=== PATIENT | female | born 1980 | race Caucasian/White ===

== ENCOUNTER → 2024-10-30 | Outpatient (CLI) | payer BC, SELFPAY ==
--- NOTE | 2024-10-30 15:28 | EKG_ITS ---
[facility] Test Date: 2024-10-30 Pat Name: MOISE ASHFORD Department: Room: - Gender: Female Manager Credit: SETH : 1980 Requested By: Abdoulaye Nguyen Order Number: [id number] Reading MD: Abdoulaye Nguyen Measurements Intervals Roland Rate: 97 P: 59 ME: 146 QRS: 21 QRSD: 94 T: 51 QT: 352 QTc: 449 Interpretive Statements SINUS RHYTHM No previous ECG available for comparison /[id number]/[email or web address]/[id number].pdf
[2024-10-30 16:36] LABS: Basophils % (Auto) 1 % (0-2.5); Eosinophils # (Auto) 0.1 Thou/mm3 (0.0-0.5); Eosinophils % (Auto) 2 % (0-10); Hematocrit 38.1 % (36.0-46.0); Hemoglobin 12.9 g/dL (12.0-16.0); Immature Granulocytes % (Auto) 0 % (0-0); Immature Granulocytes Auto 0.01 Thou/mm3 (0.00-0.00); Lymphocytes # (Auto) 2.1 Thou/mm3 (1.0-4.8); Lymphocytes % (Auto) 46 % (10-50); Mean Corpuscular HGB Conc 33.9 g/dl (31.0-37.0); Mean Corpuscular Hemoglobin 30.5 pg (25.0-35.0); Mean Corpuscular Volume 90 fL (80-100); Monocytes # (Auto) 0.3 Thou/mm3 (0.0-0.8); Monocytes % (Auto) 7 % (0-12); Neutrophils # (Auto) 2.1 Thou/mm3 (1.8-7.7); Neutrophils % (Auto) 45 % (37-80); Nucleated Red Blood Cell % 0 /100 WBC (0); Platelet Count 351 Thou/mm3 (140-440); RDW Standard Deviation 42.8 fL (36.4-46.3); Red Blood Count 4.23 Miln/mm3 (4.00-5.20); White Blood Count 4.6 Thou/mm3 (3.6-11.0)
[2024-10-30 16:47] LABS: Glucose Estimated Average 120 mg/dL (80-131); Hemoglobin A1C 5.8 % Hgb (4.8-6.0)
[2024-10-30 17:05] LABS: Alanine Aminotransferase 21 U/L (10-49); Albumin, Serum 4.6 gm/dL (3.5-5.0); Albumin/Globulin Ratio 2.1 (1.2-2.2); Alkaline Phosphatase 113 U/L (46-116); Anion Gap 9 (7-16); Aspartate Amino Transferase 17 U/L (0-34); BUN/Creatinine Ratio 11 Ratio (12-20); Bilirubin,Total 0.3 mg/dL (0.3-1.2); Blood Urea Nitrogen 8 mg/dL (9-23); Calcium 9.5 mg/dL (8.3-10.6); Calcium (Corrected) 9.5 mg/dL (8.5-10.1); Carbon Dioxide 25.6 mMol/L (20.0-31.0); Chloride 105 mMol/L (98-107); Creatinine (Component) 0.7 mg/dL (0.6-1.3); Globulin 2.2 gm/dL (2.3-3.5); Glucose 135 mg/dL (74-106); Osmolality,Calculated 279 (275-295); Potassium 4.2 mMol/L (3.4-5.1); Sodium 140 mMol/L (136-145); Total Protein 6.8 gm/dL (5.7-8.2); eGFR > 60 See Note
== END | disposition home or self-care (01) ==
PROVIDERS: PCP Family Medicine; Referring Provider Family Medicine; Visit Provider Family Medicine
DX: R00.2 Palpitations (principal); E11.65 Type 2 diabetes mellitus with hyperglycemia
CPT/HCPCS: 36415; 80053; 83036; 85025; 93005